=== PATIENT | male | born 1940 | race Caucasian/White ===

== ENCOUNTER → 2016-08-13 | Outpatient (CLI) | payer OTHER ==
[~2016-08-13] MED LIST: FINA5TAB4 PO
[2016-08-13 13:18] LABS: BASO % 0.6 %; BASO ABS # 0.03 K/uL (0-0.2); COMPLETE YES; EOS % 2.4 %; HEMATOCRIT 43.9 % (42-52); IG% 0.2 %; LYMPH % 28.5 %; LYMPH ABS # 1.42 K/uL (1.2-3.4); MEAN CELL VOLUME 86.6 fL (80-100); MEAN CORPUSCULAR HEMOGLOBIN 29.6 pg (25-34); MEAN CORPUSCULAR HGB CONC 34.2 g/dl (32-36); MEAN PLATELET VOLUME 10.8 fL (7.4-10.4); MONO % 7.6 %; NEUT % 60.7 %; PLATELET COUNT 248 K/uL (130-400); RED BLOOD COUNT 5.07 M/uL (4.7-6.1); WHITE BLOOD COUNT 4.98 K/uL (4.8-10.8)
[2016-08-13 14:02] LABS: ALT/SGPT 29 U/L (12-78); BLOOD UREA NITROGEN 21 mg/dl (7-18); BUN/CREATININE RATIO 16.4 (10-20); CARBON DIOXIDE 29 mmol/L (21-32); CHLORIDE 103 mmol/L (98-107); CHOLESTEROL 220 mg/dl (0-200); GLUCOSE 85 mg/dl (70-99); POTASSIUM 3.6 mmol/L (3.5-5.1); SODIUM 140 mmol/L (136-145); TRIGLYCERIDES 102 mg/dl (0-150); VERY LOW DENSITY LIPOPROT CALC 20 mg/dl
[2016-08-13 14:07] LABS: ALB/GLOB RATIO 1.5 (0.9-2); ALKALINE PHOSPHATASE 66 U/L (45-117); AST/SGOT 30 U/L (15-37); CHOLESTEROL/HDL RATIO 4.9; HDL CHOLESTEROL 45 mg/dl
[2016-08-13 14:09] LABS: CALCIUM 8.7 mg/dl (8.5-10.1)
[2016-08-13 14:56] LABS: ESTIMATED AVERAGE GLUCOSE 111 mg/dl; HA1C FLAG Normal (Normal)
== END | disposition home or self-care (01) ==
LOC: C.LABSPEC 12:15
PROVIDERS: ATTEND Internal Medicine
DX: E78.5 Hyperlipidemia, unspecified (principal); R73.9 Hyperglycemia, unspecified; R97.20 Elevated prostate specific antigen [PSA]

== ENCOUNTER → 2017-04-07 | Outpatient (CLI) | payer OTHER | END | disposition home or self-care (01) | LOC: C.PATHSPEC 16:40 | PROVIDERS: ATTEND Physician Assistant | DX: C44.619 Basal cell carcinoma of skin of left upper limb, including shoulder (principal) ==

== ENCOUNTER → 2017-05-21 | Outpatient (CLI) | payer OTHER ==
[2017-05-21 17:46] LABS: BLOOD UREA NITROGEN 24 mg/dl (7-18); CALCIUM 9.2 mg/dl (8.5-10.1); CARBON DIOXIDE 30 mmol/L (21-32); GLUCOSE 90 mg/dl (70-99); POTASSIUM 3.9 mmol/L (3.5-5.1); SODIUM 136 mmol/L (136-145)
== END | disposition home or self-care (01) ==
LOC: C.LABSPEC 16:37
PROVIDERS: ATTEND Internal Medicine
DX: Z01.812 Encounter for preprocedural laboratory examination (principal)

== ENCOUNTER → 2017-05-28 | Outpatient (CLI) | payer OTHER ==
[~2017-05-28] MED LIST changes: +GADAVIST IV PRN
--- NOTE | 2017-05-28 12:31 | DIAGNOSTIC IMAGING REPORT ---
CAROTID ARTERY ULTRASOUND CLINICAL HISTORY: DIZZINESS COMPARISON STUDY: None. TECHNIQUE: Real-time, grayscale, and color Doppler sonography of the carotid and vertebral arteries was performed. Images were viewed in the transverse and longitudinal planes. FINDINGS: There is minimal atherosclerotic plaque. Velocity measurements are listed below. COMMON CAROTID PEAK SYSTOLIC VELOCITY (CM/S): RIGHT 75 LEFT 91 ICA PEAK SYSTOLIC VELOCITY (CM/S): RIGHT 50 LEFT 67 Systolic ratios between the internal to common carotid arteries are normal. Antegrade flow is seen in the vertebral arteries. The external carotid arteries are patent. Blood pressure in the right arm measured 142/88. Blood pressure in the left arm measured 141/81. Incidental note is made of a 1.8 cm hypoechoic left lobe thyroid nodule. IMPRESSION: 1. No evidence for a hemodynamically significant stenosis. 2. 1.8 cm hypoechoic left lobe thyroid nodule. Electronically signed by: Jeramy Ventura M.D. 05/28/2017 12:29 PM Dictated Date/Time: 05/28/2017 12:28 PM
--- NOTE | 2017-05-28 13:08 | DIAGNOSTIC IMAGING REPORT ---
MRI OF THE BRAIN COMBO CLINICAL HISTORY: Dizziness. COMPARISON STUDY: No priors. TECHNIQUE: MRI of the brain was performed utilizing various T1 and T2-weighted sequences in the axial, sagittal, and coronal planes. Contrast-enhanced sequences were acquired following the administration of 7 cc of Gadavist. FINDINGS: Brain parenchyma: There are age-related involutional changes noting mild subcortical and periventricular microangiopathic disease. There is no hemorrhage or mass effect. There is no restricted diffusion to suggest acute ischemia. No enhancing mass lesion is identified on the postcontrast images. Martínez-white matter differentiation is preserved. No extra-axial fluid collection is seen. The cerebellar tonsils are normal in configuration. Ventricles, sulci, and cisterns: Prominent secondary to involutional change. Pituitary and sella: Unremarkable. Intracranial vasculature: Normal flow voids are maintained at the skull base. Orbits: The bony orbits are grossly intact. Orbital contents are normal in appearance noting bilateral ocular lens implants. Sinuses and mastoids: Mild mucosal thickening is seen in the maxillary antra. The remaining paranasal sinuses and the mastoid air cells are clear. Calvarium: Unremarkable. Cervical cord: Partially visualized cervical spinal cord is normal in morphology and signal intensity. IMPRESSION: No acute intracranial abnormality. Electronically signed by: Matthew Joaquin M.D. 05/28/2017 1:06 PM Dictated Date/Time: 05/28/2017 1:03 PM
== END | disposition home or self-care (01) ==
LOC: C.ULTR 11:30
PROVIDERS: ATTEND Internal Medicine
DX: R42 Dizziness and giddiness (principal); E04.1 Nontoxic single thyroid nodule

== ENCOUNTER → 2017-05-29 | Outpatient (CLI) | payer OTHER ==
[~2017-05-29] MED LIST changes: -GADAVIST IV PRN
== END | disposition home or self-care (01) ==
LOC: C.PATHSPEC 17:26
PROVIDERS: ATTEND Internal Medicine
DX: C44.619 Basal cell carcinoma of skin of left upper limb, including shoulder (principal); L90.5 Scar conditions and fibrosis of skin

== ENCOUNTER 2020-04-12 06:32 | Observation (INO) ==
--- NOTE | 2020-04-05 11:17 | Anesthesiology Consultation ---
Date of Service April 05, 2020 Assessment & Plan (1) Encounter for pre-operative examination: COVID Status: As of 04/05 nurse assessment, patient denies travel to endemic area, known exposure/sick contacts, or symptoms of COVID19. Preoperative COVID19 testing to be completed on 04/06. Case was initially scheduled for 03/06/20, and patient seen in PAT on 02/09/20. Case R/S due to covid-19 pandemic and surge capacity protocol. Preoperative labs will be "out of date" by one day. Labs were unremarkable 02/09/20. Can be repeated DOS at [facility] discretion. Chart Review Chart Review: Acceptable Risk for Surgery and Patient NOT seen in Pre Admission Testing History Surgery Operation Date: 04/12/20 08:50 Proposed Procedures p Right Total Knee Arthroplasty - Bud Castellano MD Height/Weight Height: 5 ft 10 in Weight: 77.111 kg Allergies Allergy/AdvReac Type Severity Reaction Status Date / Time oxycodone AdvReac Vomiting Verified 04/05/20 09:03 Medications Home Medications Medication Instructions Recorded Confirmed Last Taken calcium carbonate [Calcium 500] 1,000 mg PO BID 05/04/19 04/05/20 07/20/19 08:00 cholecalciferol (vitamin D3) 1,000 unit PO BID 05/04/19 04/05/20 07/20/19 08:00 [Vitamin D3] trazodone 150 mg tablet 75 mg PO HS PRN tab 09/19/19 04/05/20 Unknown finasteride 5 mg tablet 5 mg PO QAM tab 10/10/19 04/05/20 Unknown mecobalamin (vitamin B12) 1,000 1,000 mcg SUBLINGUAL QAM 02/01/20 04/05/20 Unknown mcg disintegrating tablet,sublingual omega-3 fatty acids 1,000 mg 1,000 mg PO QAM 02/01/20 04/05/20 Unknown capsule psyllium husk 3.4 gram/5.4 gram 1 tbsp PO QDL 02/01/20 04/05/20 Unknown oral powder alfuzosin 10 mg PO QPM 02/03/20 04/05/20 Unknown Past Medical History Medical History Enlarged prostate History of basal cell carcinoma Hx of vertigo only happened three times Osteoarthritis Prostate cancer s/p brachytherapy Past Family History Family History Mother , Passed age 90 of old age No problems noted. Father , Passed age 74 of dementia complications No problems noted. Brother , Passed age 82 of complications from pneumonia No problems noted. Brother No problems noted. Sister Breast cancer, Onset Age: 80 currently in remission Sister Breast cancer, Onset Age: 75 Currently in remission Sister No problems noted. Sister No problems noted. Daughter No problems noted. Son No problems noted. Past Surgical History Surgical History History of brachytherapy Brachytherapy: 07/21/19: Grade 1 view, MAC#3, ETT 7.5 at [facility] History of kidney donation Left History of left cataract surgery History of prostate biopsy History of right cataract surgery Hx of colonoscopy Social History Smoking Status: Never smoker Do You Dip or Chew Tobacco: No Hx Alcohol Use: No Hx Substance Use: No substance use type: does not use Testing Laboratory Results 02/09/20 WBC: 4.97 H/H: 12.9/37.8 PLATELETS: 208 SODIUM: 139 POTASSIUM: 4.3 CHLORIDE: 106 CO2: 28 BUN: 25 CREATININE: 1.45 GLUCOSE: 101 PT: 11 PTT: 27.3 INR: 1.0 TYPE AND SCREEN: A+, antibody negative Electrocardiogram Date: 07/15/19 Findings: + NSR @ (67bpm) Chest X-Ray Date: 07/15/19 Findings: + NAD
--- NOTE | 2020-04-07 20:14 | History and Physical Report ---
DATE OF ADMISSION: 04/12/2020 CHIEF COMPLAINT: Bilateral knee pain and discomfort, right side greater than left. HISTORY OF PRESENT ILLNESS: The patient is a 79-year-old gentleman who presents specifically for surgical treatment of his knees. He has got a long history of bilateral knee pain and discomfort, right side greater than left. He has been through extensive conservative treatment including injections, which have only helped temporarily. He has got global pain in both knees. The more he is up and on them, the more they hurt. He gets swelling. He has a limited walking tolerance. He has pain going up and down stairs. He would like to proceed with surgical/definitive treatment. PAST MEDICAL HISTORY: 1. Gastroesophageal reflux disease. 2. BPH. 3. Prostate cancer. PAST SURGICAL HISTORY: Include kidney donation to his who is now . ALLERGIES: None. CURRENT MEDICATIONS: Include, 1. Finasteride. 2. Fish oil. 3. Vitamin D3. 4. Calcium. SOCIAL HISTORY: A 79-year-old male. He is . He lives alone. Does not smoke. No significant alcohol intake. FAMILY HISTORY: Noncontributory. REVIEW OF HISTORY: Negative for diabetes, neurologic problem, vascular problems or bleeding disorders. No chest pain or shortness of breath. No history of DVT or PE. He only does have one kidney. PHYSICAL EXAMINATION: GENERAL: A healthy, pleasant, elderly male. Looks to be in good health. He looks younger than his stated age. HEENT: Benign. NECK: Supple, no lymphadenopathy. LUNGS: Clear to auscultation. HEART: Has a regular rate and rhythm. ABDOMEN: Soft, nontender, nondistended. EXTREMITIES: Grossly neurovascularly intact except as follows: Examination of both knees reveals the patient ambulates independently. Examination of the right knee reveals varus deformity. He has got a varus thrust with weightbearing. He has got bony hypertrophy medially. Small knee effusion. Range of motion 5-120. No instability. No pain with hip motion. Examination of the left knee reveals a similar varus deformity. Small knee effusion. Range of motion 5-125. No instability. X-RAYS: X-rays of both knees reveal advanced bilateral knee DJD. The right side is a bit worse than the left. He has got complete loss of medial joint space. He looks like he has got some anterior subluxation of the tibia as well. 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 He has failed conservative measures. He does only have one kidney and his creatinine is a little bit elevated. He really cannot take nonsteroidal anti-inflammatory drugs as a result. PLAN: We talked about treatment. He is adamant about proceeding with knee replacement. We will proceed with right knee replacement. The risks and benefits of this procedure were explained to the patient including but not limited to DVT, PE, , infection, neurological injury, vascular injury, bleeding problem, pain, limited range of motion, stiffness, failure to relieve his symptoms, incomplete relief of symptoms, need for further surgery in the future, fracture, leg length inequality, nerve palsy, etc. The patient understands and desires to proceed. Informed consent was obtained. Apparently, he has had a lot of nausea with oxycodone, which is not a true allergy. We will likely try and use Dilaudid. His creatinine is a little bit elevated that he only has one kidney and we will have to be very careful with NSAIDs use. As far as discharge plans, he is planning to be discharged to home with [facility] program. His daughter is going to come and stay with him.
[~2020-04-12 06:32] MED LIST changes: +ACETAMINOPHEN 500 MG TAB PO SCH; +BUPIVACAINE 0.25% 30 ML VIAL ONE; +BUPIVACAINE 0.5 % 5 MG/1 ML PF 10ML VIAL ONE; +BUPIVACAINE LIPOSOME/PF 266 MG, BUPIVACAINE/EPINEPHRINE 50 ML, SODIUM CHLORIDE 0.9% 30 ... INFIL SCH; +DEXAMETHASONE SOD INJ 4 MG/ML VIAL ONE; +EPINEPHrine INJ 1 MG/ML AMP ONE; +FAMOTIDINE 20 MG TAB PO SCH; -FINA5TAB4 PO; +GABAPENTIN 300 MG CAP PO SCH; +LR 500ML BOLUS, THEN 15ML/HR IV SCH; +LR 60ML/HR IV SCH; +TRANEXAMIC ACID 1,000 MG **IV Intra-op IV SCH; +ceFAZolin 2000MG 2,000 MG/15 ML SYR IV SCH
--- NOTE | 2020-04-12 06:56 | History & Physical Bridge Note ---
Date of Service April 12, 2020 History & Physical Bridge Note I have examined the patient, reviewed the History & Physical and in the interval since the performance of the History & Physical I have noted the following changes of clinical significance: no changes noted
[2020-04-12] MEDS ORDERED: MIDAZOLAM HCL 1 MG/ML 2ML VIAL ONE ×2 (07:29→10:43)
[2020-04-12] MEDS ORDERED: fentaNYL citrate 100 MCG/2 ML VIAL ONE (07:29)
[2020-04-12] MEDS ORDERED: PROPOFOL IV EMULSION 10 MG/ML 20 ML VIAL IV ONE ×2 (07:29→09:58)
[2020-04-12] MEDS ORDERED: LIDOCAINE HCL 2% 2 ML VIAL/AMP(20MG/ML) INFIL ONE (07:29)
[2020-04-12] MEDS ORDERED: BUPIVACAINE LIPOSOME 1.3% 266 MG/20 ML VIAL ONE (08:57)
[2020-04-12] MEDS ORDERED: SODIUM CHLORIDE 0.9% PF 50 ML VIAL ONE (08:57)
[2020-04-12] MEDS ORDERED: EPINEPHrine INJ 1 MG/ML AMP ONE (08:57)
[2020-04-12] MEDS ORDERED: BACITRACIN INJ 50,000 UNIT VIAL ONE (08:57)
[2020-04-12] MEDS ORDERED: BUPIVACAINE 0.25% 30 ML VIAL ONE (08:57)
--- NOTE | 2020-04-12 11:00 | Operative Report ---
Post Operative Report Pre & Post Diagnosis Operation Date: 04/12/20 08:50 Pre-Op Diagnosis: Right Knee Advanced Degenerative Joint Disease Post-Op Diagnosis: Right Knee Advanced Degenerative Joint Disease I identified the patient and participated in the time-out.: Yes Procedure Operation Date: 04/12/20 08:50 Actual Procedures p Right Total Knee Arthroplasty - Bud Castellano MD Surgeon Bud Castellano MD [employer] Att[employer] OSVALDO Massey Estimated Blood Loss 50 Findings Consistent with Post-Op Diagnosis Operative findings were advanced right knee DJD. He extensive grade 4 lima-dl-sapn disease and eburnation of the medial compartment as well as patellofemoral compartment. He had fixed varus deformity to his knee. Moderate sized knee joint effusion. Fluids 1500 cc. Specimens Right knee sent for pathology. Drains None. Anesthesia Type Spinal MAC Complications none Disposition Accompanied Patient To Recovery: No Disposition: Recovery Room Indications Patient is a 79-year-old fairly active gentleman who is had a long history of bilateral knee pain discomfort right side a bit worse than left. Is been through extensive conservative treatment the past which became less successful. He elected proceed with right total knee arthroplasty. Description of Procedure Operative implants consist of: 1. Biomet Vanguard size 67.5 right posterior stabilized femoral component. 2. Biomet size 75 tibial tray. 3. 14 mm posterior stabilized polyethylene insert. 4. 31 x 8 all polypatella. The patient was taken to the operating identified and placed on the operating table supine position but all contact areas were properly padded with IV antibiotics 5 by anesthesia team. A spinal anesthetic and abductor canal block had been applied in the holding area. Ocampo catheter was placed in sterile fashion. Right thigh tourniquet was then placed in the right lower extremity and prepped and draped in usual sterile fashion. The right lower extremity was elevated exsanguinated with use of an Esmarch and turns placed at 300 mmHg. An anterior approach of the right knee was then performed to longitudinal incision centered over the patella. Sharp dissection was carried through subcutaneous tissue down to the level extensor mechanism. A medial parapatellar arthrotomy incision was made. Some subperiosteal dissection was carried out medially. The fat pad was resected from each patella tendon. Lateral patellofemoral ligament was released. Patella was subluxated laterally knee was flexed. The osteophytes were taken off distal femur. The ACL and PCL were then released from the distal femur and the tibia subluxate anteriorly. The external tibial alignment jig was then placed in the interface the tibia and adjusted 14 mm medially. Proximal tibial cut was made to remove about a millimeter or 2 of bone from most efficient aspect needle till plateau. Some osteophytes taken off medial and posterior medially. Tibia sized to a size 75. Attention drawn the femur. The distal femur turned with a sharp drop with intramedullary canal was suction. A right 6 degree valgus cutting guide was placed. The distal femoral cutting block was pinned in place but distal femoral cut was made to take an additional 3 mm bone off distal femur. The femur was then sized to a size 67.5. We downsized this slightly. The AP cutting block was pinned parallel to the epicondylar axis which was 3 degrees of external rotation. The anterior cut, anterior chamfer, posterior cut, posterior chamfer cuts were made. Box cutting guide was placed in just slight lateral and the box cut was made. The knee was flexed. The remnants of the medial and lateral menisci were excised. The osteophytes were taken off the posterior aspect the femur. A trial femoral component was placed. The tibial tray was pinned in maximum external rotation and the drill and stem punch used to create defect in proximal to for the tibial tray. Knee was then trialed and the 14 mm insert fit most appropriately. Attention drawn the patella. Patella was cleaned of all soft tissues. Patella thickness measured 25 mm in thickness and cut down to 15. Sized to a size 31 patella. The locals were drilled for the 31 patella. The lateral osteophyte is moved. Patella button was placed. Knee was taken through range of motion patella tracked nicely with no thumbs test. Attention drawn to placing permanent components. All trial components were removed. Bone plug was placed in the distal femur limit blood loss. Double batch Palacos G cement was mixed. A Biomet Vanguard size 67.5 right posterior stabilized femoral component, size 75 tibial tray, a 14 mm posterior stabilized polyethylene insert, and a 31 x 8 all polypatella were then cemented in place. Knee was brought out in full extension of cement hardened. Final cement check was then performed. Pericapsular tissues were injected with total 100 cc of combination of 20 cc of Exparel, 30 cc normal saline, 50 cc of quarter percent Marcaine with epinephrine. Patient did receive 1 g tranexamic acid per the tourniquet was then let down for final turn time 55 minutes. Hemostasis assured use electrocautery. The extensor mechanism closed with combination 1 PDS suture in an #1 Vicryl suture in [id number] fashion. Extensor mechanism checked found to be intact with subcutaneous tissue then closed with 2 Dexon suture in a buried interrupted fashion skin was closed skin isacc. Legs then cleaned dried a sterile dressed composed Xeroform, 4 x 4's, sterile cast padding, Eusebio bandage were applied. Patient then transferred to the recovery room in stable condition. Patient tolerated the procedure well and there were no complications. Abdias Massey, my physician pediatric physical therapy assistant, was present for the entire procedure. His assistance was essential and required for appropriate patient positioning, prepping and draping, surgical exposure, performing the technical details of the operation, placement the implants, closure of the wound, and placement of the sterile bandage. I attest to the content of the Intraoperative Record and any orders documented therein. Any exceptions are noted below.
[2020-04-12] MEDS ORDERED: ATROPINE SULFATE 0.1 MG/ML 10ML SYR IV PRN (11:02)
[2020-04-12] MEDS ORDERED: ePHEDrine sulfate 50 MG/ML AMP IV PRN (11:02)
[2020-04-12] MEDS ORDERED: ONDANSETRON INJ 2 MG/ML 2 ML VIAL IV PRN ×2 (11:02→12:01)
[2020-04-12] MEDS ORDERED: fentaNYL citrate 100 MCG/2 ML VIAL IV PRN (11:02)
--- NOTE | 2020-04-12 11:37 | XRay Report ---
XR knee RT 1 or 2V routine CLINICAL HISTORY: Surgical Post Op COMPARISON: None. DISCUSSION: There are postsurgical changes of a total right knee arthroplasty and patellar resurfacin g. There is gas present within the soft tissues consistent with recent surgery. There are overlying s kin isacc. The femoral and tibial components appear well seated. IMPRESSION: Postsurgical changes of a total right knee arthroplasty. ACT 112: Negative or not required by law. Electronically signed by: Nadir Dao M.D. 04/12/2020 11:36 AM
[2020-04-12] MEDS: SODIUM CHLORIDE 0.9% 1000ML 1,000 ML IV SCH ×2 (11:55→22:51)
[2020-04-12] MEDS ORDERED: NALOXONE HCL 0.4 MG/1 ML VIAL/CARP IV PRN (12:01)
[2020-04-12] MEDS ORDERED: TAMSULOSIN HCL 0.4 MG CAP PO PRN (12:01)
[2020-04-12] MEDS ORDERED: traMADol HCL 50 MG TABLET PO PRN (12:01)
[2020-04-12] MEDS ORDERED: traZODone HCL 50 MG TAB PO PRN (12:01)
[2020-04-12] MEDS ORDERED: bisacodyL 10 MG SUPP PR PRN (12:01)
[2020-04-12] MEDS ORDERED: MAGNESIUM HYDROXIDE SUSP 30 ML UDC PO PRN (12:01)
[2020-04-12] MEDS ORDERED: HYDROmorphone INJ 0.5 MG/0.5 ML SYR IV PRN (12:01)
[2020-04-12] MEDS ORDERED: ALUMINUM/MAGNESIUM SUSP 30 ML UDC PO PRN (12:01)
[2020-04-12] MEDS ORDERED: METOCLOPRAMIDE HCL INJ 5 MG/ML 2 ML VIAL IV PRN (12:01)
--- NOTE | 2020-04-12 12:47 | Anesthesiology Progress Note ---
Date of Service April 12, 2020 Anesthesia Post Procedure Vital Signs Vital Signs: Temp Pulse Pulse Pulse Resp BP Pulse Ox 04/12/20 12:25 36.6 C 84 18 144/79 H 99 04/12/20 12:01 36.3 C L 79 16 125/68 99 04/12/20 11:20 82 15 115/77 97 04/12/20 11:10 80 22 109/76 100 04/12/20 11:00 86 19 90/64 L 100 04/12/20 10:54 36.2 C L 77 16 107/59 L 100 04/12/20 07:00 36.9 C 110 H 20 153/98 H 98 Transfer of Care Handoff Completed per policy Notes Mental Status: alert / awake / arousable Patient Amnestic to Procedure: Yes Nausea / Vomiting: adequately controlled Pain: adequately controlled Airway Patency, RR, SpO2: stable & adequate BP & HR: stable & adequate Hydration State: stable & adequate Neuraxial Anesthesia: was administered and sensory block is resolving Anesthetic Complications: no major complications apparent and Pt Satisfied with anesthetic care
[2020-04-12] MEDS: ACETAMINOPHEN 500 MG TAB PO SCH ×2 (14:17→21:36)
[2020-04-12] MEDS: ceFAZolin 1000MG 1,000 MG/7.5 ML SYR IV SCH ×2 (14:18→21:36)
--- NOTE | 2020-04-12 16:05 | Progress Notes ---
DATE: 04/12/2020 SUBJECTIVE: A 79-year-old gentleman postop from a right knee replacement. He is doing pretty well. Really not having any pain yet. Just starting to get the feeling and sensation and function back in his leg. He says they are still pretty weak. No chest pain or shortness of breath. Not feeling dizzy or lightheaded. OBJECTIVE: VITAL SIGNS: Temperature is 36.5. Vital signs are stable. GENERAL: Shows a pleasant elderly male. He is sitting up in bed, looks comfortable. He is awake, alert and oriented. LUNGS: Clear to auscultation. HEART: Regular rate and rhythm. ABDOMEN: Soft, nontender, nondistended. EXTREMITIES: Grossly neurovascularly intact except as follows: Examination of the right leg reveals the dressing to be clean, dry and intact. Leg looks well aligned. He is just starting to be able to move his toes a little bit. He has got brisk refill. X-RAYS: X-rays of the right knee from recovery room are reviewed. It shows a right cemented posterior stabilized total knee arthroplasty. Components looked to be in good position. No signs of problems. ASSESSMENT: A 79-year-old gentleman postoperative from right knee replacement, doing well. Spinal is still in effect. Just starting to get the sensation and function back in his legs. He has got good blood flow. PLAN: 1. DVT prophylaxis including thigh-high TEDs, SCDs, and aspirin twice a day. 2. PT/OT. Weight bear as tolerated. Right total knee protocol. 3. Pain control, doing well with current pain regimen. We will have to adjust his medicine as his spinal wears off. 4. IV antibiotics x24 hours. 5. Disposition: Plan to discharge to home and his daughter is going to assist in his care and he is going to have some home health.
[2020-04-12] MEDS: FERROUS GLUCONATE 324 MG TAB PO SCH (16:59)
[2020-04-12] MEDS: CALCIUM CARBONATE 1250MG TAB PO SCH (16:59)
[2020-04-12] MEDS: ASCORBIC ACID 500 MG TAB PO SCH (16:59)
[2020-04-12] MEDS ORDERED: TRANEXAMIC ACID / 0.7% NACL 1,000 MG/100 ML BAG IV SCH (17:00)
[2020-04-12] MEDS: ASPIRIN 81 MG ECTAB PO SCH (20:24)
[2020-04-12] MEDS: DOCUSATE SODIUM 100 MG CAP PO SCH (20:24)
[2020-04-12] MEDS: CHOLECALCIFEROL 1,000 UNITS 25 MCG TAB PO SCH (20:25)
[2020-04-12] MEDS ORDERED: SENNA 8.6 MG TAB PO SCH (21:00)
[2020-04-12] MEDS ORDERED: ALFUZOSIN HCL 10 MG TAB PO SCH (21:00)
[2020-04-13] MEDS: ACETAMINOPHEN 500 MG TAB PO SCH ×2 (05:30→14:19)
[2020-04-13 06:00] LABS: Hematocrit (blood only) 36.6 % (42-52); Hemoglobin 12.6 g/dL (14.0-18.0); Mean Corpuscular Hemoglobin 29.4 pg (25-34); Mean Corpuscular Hgb Conc 34.4 g/dL (32-36); Mean Corpuscular Volume 85.3 fL (80-100); Mean Platelet Volume 9.9 fL (7.4-10.4); Platelet Count 224 K/uL (130-400); RDW Coefficient of Variation 13.4 % (11.5-14.5); RDW Standard Deviation 41.7 fL (36.4-46.3); Red Blood Count 4.29 M/uL (4.7-6.1); White Blood Count 10.37 K/uL (4.8-10.8)
[2020-04-13 06:20] LABS: BUN Creatinine Ratio 17.1 (10-20); Calcium 8.9 mg/dl (8.5-10.1); Creatinine Clr Calc Pharmacy 45.1 ml/min; Est GFR (African American) 56.5; Est GFR (Non-African American) 48.7; Potassium 4.1 mmol/L (3.5-5.1)
[2020-04-13 07:11] VITALS: TEMP 98.1; O2SAT 96
[2020-04-13] MEDS ORDERED: dexAMETHasone 4 MG TAB PO SCH (08:00)
[2020-04-13] MEDS: CALCIUM CARBONATE 1250MG TAB PO SCH (08:13)
[2020-04-13] MEDS: DOCUSATE SODIUM 100 MG CAP PO SCH (08:13)
[2020-04-13] MEDS: ASPIRIN 81 MG ECTAB PO SCH (08:14)
[2020-04-13] MEDS: ASCORBIC ACID 500 MG TAB PO SCH (08:14)
[2020-04-13] MEDS: FERROUS GLUCONATE 324 MG TAB PO SCH (08:14)
[2020-04-13] MEDS: CHOLECALCIFEROL 1,000 UNITS 25 MCG TAB PO SCH (08:14)
[2020-04-13] MEDS ORDERED: MULTIVITAMIN TAB PO SCH (09:00)
[2020-04-13] MEDS ORDERED: OMEGA-3 (PURIFIED FISH OIL) 1 GM CAP PO SCH (09:00)
[2020-04-13] MEDS ORDERED: FINASTERIDE 5 MG TAB PO SCH (09:00)
[2020-04-13] MEDS ORDERED: CYANOCOBALAMIN 500 MCG TABLET (VITAMIN B-12) PO SCH (09:00)
[2020-04-13] MEDS ORDERED: PSYLLIUM 58.6% POWDER PACKET PO SCH (11:30)
--- NOTE | 2020-04-13 13:55 | Progress Notes ---
DATE: 04/13/2020 SUBJECTIVE: A 79-year-old gentleman postop day 1 from right knee replacement. He is doing well. His nerve function returned in his leg. His pain is controlled. Denies any chest pain or shortness of breath. Not feeling dizzy or lightheaded. OBJECTIVE: VITAL SIGNS: Temperature 36.7. Vital signs stable. GENERAL: Shows a pleasant, middle-aged male. He is sitting up in his bedside chair and looks quite comfortable. EXTREMITIES: Examination of the right leg reveals the dressing to be clean, dry, and intact. He can dorsiflex and plantarflex his foot appropriately. He can do a good straight leg raise. He is neurologically intact. LABORATORY DATA: Hemoglobin is 12.6. Hematocrit 36.6. Vital signs stable. Creatinine is actually improved and within normal range. ASSESSMENT: A 79-year-old gentleman postop day 1 from a right knee replacement, doing pretty well. His pain is controlled. He is neurologically intact and the nerve function is returned. PLAN: 1. DVT prophylaxis including thigh-high TEDs, SCDs, and aspirin twice a day. 2. PT/OT. Weight bear as tolerated. Right total knee protocol. 3. Pain control, doing well with current pain regimen. 4. Disposition: Plan to discharge to home with some home health and his daughter's assistance if he does okay in therapy today.
[2020-04-13 13:58] VITALS: BP 114/67; PULSE 79
--- NOTE | 2020-04-17 06:32 | Discharge Summary ---
Date of Service April 17, 2020 Discharge Data Consultations 04/12/20 12:01 Consult Case Management - Discharge Planning Routine Procedures Performed Operation Date: 04/12/20 08:50 Actual Procedures p Right Total Knee Arthroplasty - Bud Castellano MD Hospital Course (1) Status post total right knee replacement: This patient is a 79 year old male admitted on 04/12/20 and underwent total knee arthroplasty. He tolerated the procedure well and there were no complications. Transferred to the PACU post op and later to the orthopedic floor for further care. He was given ancef for antibiotic prophylaxis. He was also given ROBINSON stockings, SCDs, and aspirin for DVT prophylaxis. Hemoglobin, hematocrit, and vital signs were monitored during his hospital stay and remained stable. Did not require any blood transfusions. There were no complications during his hospital stay. By post op day #1 the patient was tolerating a regular diet, pain was reasonably controlled with oral pain medicine, and he was participating in physical therapy. On post op day #1 the patient was discharged home and set up with home health care. He was given printed discharge instructions including prescriptions for extra strength tylenol, aspirin, and tramadol. Continue physical therapy, weight bearing as tolerated. Continue ROBINSON stockings. Follow up approximately 2 weeks post op or sooner if there are problems or concerns. Coding Level of Care Code None Diagnoses Status post total right knee replacement Z96.651
== END 2020-04-13 15:36 | disposition home health service (06) ==
LOC: ASU 06:32 → 3E 06:32